=== PATIENT | female | born 1950 | race African-American/Black ===

== ENCOUNTER 2020-07-17 09:48 | Outpatient (CLI) | payer MEDICARE | END 2020-07-17 09:49 | disposition home or self-care (01) | LOC: CSHMAMMO 09:48 | PROVIDERS: ATTEND Family Medicine | DX: Z12.31 Encounter for screening mammogram for malignant neoplasm of breast (principal) | CPT/HCPCS: 77063; 77067 ==

== ENCOUNTER 2021-07-30 08:47 | Outpatient (CLI) | payer MEDICARE | END 2021-07-30 08:48 | disposition home or self-care (01) | LOC: CSHMAMMO 08:47 | PROVIDERS: ATTEND Family Medicine | DX: Z12.31 Encounter for screening mammogram for malignant neoplasm of breast (principal) | CPT/HCPCS: 77063; 77067 ==

== ENCOUNTER 2022-08-04 09:01 | Outpatient (CLI) | payer MEDICARE | END 2022-08-04 09:02 | disposition home or self-care (01) | LOC: CSHMAMMO 09:01 | PROVIDERS: ATTEND Family Medicine | DX: Z12.31 Encounter for screening mammogram for malignant neoplasm of breast (principal) | CPT/HCPCS: 77063; 77067 ==

== ENCOUNTER 2023-08-11 07:50 | Outpatient (CLI) | payer MEDICARE | END 2023-08-11 07:51 | disposition home or self-care (01) | LOC: CSHMAMMO 07:50 | PROVIDERS: ATTEND Family Medicine | DX: Z12.31 Encounter for screening mammogram for malignant neoplasm of breast (principal) | CPT/HCPCS: 77063; 77067 ==